=== PATIENT | male | born 1980 | race Hispanic/Latino ===

== ENCOUNTER 2020-10-10 15:23 | Emergency (ER) | payer SELFPAY ==
[~2020-10-10] VITALS: Ht 172.7 cm; Wt 74.8 kg
== END 2020-10-10 16:07 | disposition home or self-care (01) ==
LOC: FSED 15:48
DX: S62.502B Fracture of unspecified phalanx of left thumb, initial encounter for open fracture (principal); W29.8XXA Contact with other powered hand tools and household machinery, initial encounter; Y92.008 Other place in unspecified non-institutional (private) residence as the place of occurrence of the external cause
CPT/HCPCS: 99282